=== PATIENT | female | born 1975 | race Caucasian/White ===

== ENCOUNTER 2018-11-18 20:19 | Emergency (ER) | payer SELFPAY ==
[2018-11-18] MEDS ORDERED: Ibuprofen 800 MG TAB ONE (20:36)
[2018-11-18 20:43] LABS: Bilirubin Negative (Negative); Blood, Urine Negative (Negative); Clarity Clear (Clear); Glucose, Urine (Dipstick) Negative (Negative); Leukocyte Negative (Negative); Nitrite Negative (Negative); Protein, Urine (Dipstick) Trace mg/dL (Neg-Trace); Specific Gravity, Urine 1.025 (1.005-1.030); Urobilinogen 0.2 mg/dL (0.2-1.0)
[2018-11-18] MEDS ORDERED: Ondansetron ODT 4 MG TAB ONE (20:55)
== END 2018-11-18 21:10 | disposition home or self-care (01) ==
LOC: NAV ERS 20:19
DX: J10.1 Influenza due to other identified influenza virus with other respiratory manifestations (principal); F32.9 Major depressive disorder, single episode, unspecified; E66.9 Obesity, unspecified
CPT/HCPCS: 81003; 87086; 87804; 99283; Q0162